=== PATIENT | male | born 1980 | race African-American/Black ===

== ENCOUNTER 2019-10-30 18:58 | Inpatient (IN) ==
[~2019-10-30 18:58] MED LIST: NS 1,000 ML IV ONE
[2019-10-30] MEDS ORDERED: HUMULIN R IV ONE (18:59)
--- NOTE | 2019-10-30 19:08 | PROVIDER DOCUMENTATION ---
HPI-General Adult - General Chief Complaint: High Blood Sugar Stated Complaint: high blood sugar Time Seen by Provider: 10/30/19 19:04 Source: patient Allergies/Adverse Reactions: Patient Allergies Allergy/AdvReac Type Severity Reaction Status Date / Time No Known Allergies Allergy Verified 10/30/19 21:52 Home Medications: Home Medication List Medication Instructions Recorded Confirmed Last Taken Type Insulin NPH Hum/Reg Insulin Hm 45 unit SQ QAM 01/22/18 10/30/19 04/02/18 History [Humulin 70/30 Kwikpen] Carvedilol [Coreg] 12.5 mg PO Q12HR #60 tab 01/27/18 10/30/19 04/02/18 Rx Insulin Humulin 70/30 [Humulin 20 unit SUBQ QPM insuln.pen 01/27/18 10/30/19 04/02/18 Rx 70/30] Insulin Lispro [Admelog] See Protocol SQ AC + HS #1 vial 01/27/18 10/30/19 04/02/18 Rx Lisinopril 40 mg PO DAILY #30 tab 01/27/18 10/30/19 04/02/18 Rx Simvastatin [Zocor] 20 mg PO QHS #30 tab 01/27/18 10/30/19 04/02/18 Rx Gabapentin 300 mg PO BID 09/30/19 10/30/19 Unknown History - History of Present Illness -Gen Adult Nature of Presenting Problems: 38 yr old M, hx of HTN, type 1 DM, presenting with a 4-5 day hx of vomiting, worsening fatigue, sleepiness and generalized body aches, nausea and vomiting; t he pt reports being out of his insulin for about 3 days and notes BG levels as high at 400s, pt has also been urinating more frequently. When pt was picked up by EMS this evening; he had a BP 80s/50s; it began to improve by the time he arrived to the ED; pt reports being on multiple BP meds; but chart only lists two. Review of Systems - Adult - REVIEW OF SYSTEMS - ADULT Constitutional: reports: see HPI Eyes: reports: no symptoms reported Ears, Nose, Mouth & Throat: reports: no symptoms reported Cardiovascular: reports: no symptoms reported Respiratory: reports: no symptoms reported Gastrointestinal: reports: see HPI Genitourinary: reports: see HPI Musculoskeletal: reports: no symptoms reported Integumentary: reports: no symptoms reported Neurological: reports: no symptoms reported Psychiatric: reports: no symptoms reported Endocrine: reports: see HPI Past History - Adult - PAST MEDICAL HISTORY-ADULT Review of Records: reports: Old Records Reviewed, Nursing Assessment Review Major Childhood Illnesses: reports: denies history Cardiovascular: reports: HTN, hyperlipidemia Respiratory: reports: denies history Gastrointestinal: reports: denies history. denies: GI bleed, ulcer Obstetrical/Gynecological: reports: denies history Genitourinary: reports: denies history Musculoskeletal: reports: denies history Neurological: reports: denies history, Seizures/Epilepsy Psychiatric: reports: denies history Endocrine/Immune: reports: Diabetes Other Conditions: reports: denies history - PRIOR SURGERIES/PROCEDURES Surgical/Procedure History: reports: none, other (ercp) - IMMUNIZATION STATUS Childhood Immunizations: See Nurse Assessment Flu Vaccine: See Nurse Assessment - FAMILY HISTORY Family History: CAD over 55 yo, other (DM- MOM) - SOCIAL HISTORY Living Situation: family Physical Exam-General - PHYSICAL EXAM-ADULT Initial Vital Signs Reviewed: Yes - CONSTITUTIONAL General Appearance: alert, thin, slow to respond - EYES Eyes: PERRL/EOMI - HEAD, EARS, NOSE, MOUTH & THROAT HENMT: normocephalic/atraumatic. negative: moist mucous membranes - RESPIRATORY Respiratory: lungs clear, normal breath sounds - CARDIOVASCULAR Cardiovascular: no edema - GASTROINTESTINAL (ABDOMEN) Abdominal Exam: normal bowel sounds, non tender, soft - MUSCULOSKELETAL Extremity: no pedal edema, no calf tenderness - SKIN Integumentary: warm/dry - PSYCHIATRIC Psych/Mental Status: normal mood/affect, oriented x 3 Progress - PLAN OF CARE/RESULTS Progress/Plan/Lab Results: Vital Signs - 8 hr 10/30/19 18:31 Temperature 98.1 F Pulse Rate 87 Respiratory Rate 16 Blood Pressure 85/57 O2 Sat by Pulse Oximetry 99 Laboratory Results - last 24 hr 10/30/19 18:39 POC Glucose 360 H Orders Category Date Time Status ACETONE SERUM [CHEM] Stat Lab 10/30/19 18:59 Uncollected CBC WITH ELECTRONIC DIFF [HEME] Stat Lab 10/30/19 18:58 Uncollected COMPREHENSIVE METABOLIC PANEL [CHEM] Stat Lab 10/30/19 18:58 Uncollected LACTATE, PLASMA [CHEM] Stat Lab 10/30/19 18:58 Uncollected URINALYSIS W/POSS RFLX CULT [URINALYSIS] Stat Lab 10/30/19 18:59 Uncollected Insulin Human Regular [Humulin R] Med 10/30/19 18:59 Once 5 unit IV NOW ONE Ns 1000 ml IV Bolus X1 Med 10/30/19 18:57 Ordered 0.9% Sodium Chloride Inj [Ns] 1,000 ml IV 999 mls/hr Result Diagrams: 10/30/19 18:45 10/30/19 18:45 - CONSULTS/PCP/HOSPITALIST Notification #1 *Consult/PCP/Hospitalist*: Dr. Colon Time Discussed: 19:35 Consult Disposition: Admit Departure - Departure Date of Disposition Decision: 10/30/19 Time of Disposition Decision: 20:31 DIAGNOSIS: DKA (diabetic ketoacidoses) Qualifiers: Diabetes mellitus type: type 1 Diabetes mellitus complication detail: without coma Qualified Code(s): E10.10 - Type 1 diabetes mellitus with ketoacidosis without coma Hypotension Qualifiers: Hypotension type: unspecified hypotension type Qualified Code(s): I95.9 - Hypotension, unspecified Disposition: ADMITTED INPATIENT 09 Certified Medical Emergency: Emergent Condition: Stable - Critical Care Note This patient required my direct & personal management of CC.: No Attestation - Physician/ BINH Attestation Patient care was provided by Advanced Practice Provider:: No The physician spent face to face time with patient:: Yes Advanced Practice Provider documentation review:: Supervising physician onsite and consulted in the evaluation and care of this patient. The physician did have a face to face encounter with the patient.
[2019-10-30 19:10] LABS: BASO# 0.04 X1000 (0.0-0.2); BASO% 0.3 % (0.0-0.8); EOS# 0.02 X1000 (0.0-0.7); EOS% 0.2 % (0.0-10.0); HEMATOCRIT 39.3 % (42.0-52.0); HEMOGLOBIN 13.1 g/dL (14.0-18.0); IMM GRAN# 0.02 X1000 (0.0-0.04); IMM GRAN% 0.2 % (0.0-0.5); LYMPH% 17.4 % (20.5-51.1); MCH 26.9 PG (27-31); MCHC 33.3 g/dL (33-37); MCV 80.7 FL (81-99); MONO# 0.57 X1000 (0.11-0.59); MPV 9.7 FL (7.4-10.4); NEUT# 8.83 X1000 (1.4-6.5); NEUT% 76.9 % (42.2-75.2); PLT 321 X1000 (130-400); RBC 4.87 XMIL (4.7-6.1); RDW 12.8 % (11.5-14.5); WBC 11.48 X1000 (4.8-10.8)
--- NOTE | 2019-10-30 19:33 | Diag Imaging Result Doc PS360 ---
EXAM: CHEST-PORTABLE 10/30/2019 HISTORY: Vomiting, Chest Discomfort TECHNIQUE: Erect AP portable at 1912 COMMENT: There is no evidence of acute cardiac or pulmonary disease. Compared to 01/22/2018 there has been no significant change. IMPRESSION: No acute disease. Electronically signed by Harley Min 10/30/2019 7:31 PM
[2019-10-30 19:38] LABS: AGAP 21; ALB/GLOB RATIO 1.1; ALBUMIN 3.3 g/dL (3.5-5.0); ALKALINE PHOSPHATASE 87 U/L (32-122); BUN 35 mg/dL (8-22); CALCIUM 8.7 mg/dL (8.8-10.2); CHLORIDE 93 mmol/L (98-107); COSMO 292; ESTIMATED GFR 45; GLUCOSE 384 mg/dL (70-104); GOT 20 U/L (10-34); GPT 35 U/L (10-44); POTASSIUM 4.5 mmol/L (3.5-5.1); SODIUM 134 mmol/L (136-145); TCO2 20 mmol/L (25-35); TOTAL BILIRUBIN 0.28 mg/dL (0.20-1.00); TOTAL PROTEIN 6.2 g/dL (6.3-8.3)
[2019-10-30 19:45] LABS: ACETONE SERUM SMALL (NEGATIVE)
[2019-10-30 19:50] LABS: URINE SOURCE CLEAN CATCH
[2019-10-30 19:54] LABS: BILIRUBIN URINE SMALL (NEGATIVE); BLOOD URINE NEGATIVE (NEGATIVE); COLOR YELLOW; GLUCOSE URINE >1000 mg/dL (NEGATIVE); KETONE URINE 40 mg/dL (NEGATIVE); LEUKOCYTES URINE SMALL (NEGATIVE); NITRITE URINE NEGATIVE (NEGATIVE); PH URINE 5.5; PROTEIN URINE 50 mg/dL (NEGATIVE); TURBIDITY URINE CLEAR (CLEAR); UR EPITHELIAL CELLS <10 /HPF (<10); URINE BACTERIA NEGATIVE /HPF; URINE RBC <10 /HPF (<10); URINE WBC 20-40 /HPF (<10); UROBILINOGEN URINE 3 mg/dL (NORMAL)
[2019-10-30] MEDS ORDERED: NS 1,000 ML IV ONE ×2 (20:29→21:44)
[2019-10-30 20:51] LABS: ALLEN TEST YES; BE 0.6 mmoll (-3.0-3.0); BLOOD TYPE ARTERIAL; HCO3-(ACT) 25.4 mmoll (20.0-26.0); METHB 0.7 % (0.0-1.5); O2HB 96.2 % (95.0-99.0); PCO2(98.6) 44 mmHg (35-45); PO2(98.6) 78 mmHg (60-100); SAMPLE BLOOD; SAO2 99.1 % (95.0-100.0); THB 12.5 g/dL (11.5-17.4); pH(98.6) 7.38 (7.35-7.45)
[2019-10-30 20:53] LABS: MODALITY ROOM AIR
[2019-10-30] MEDS ORDERED: ROCEPHIN 1 GM in NS 50 ML IV SCH (21:00)
[2019-10-30 21:33] LABS: INR 0.88
[2019-10-30 21:40] LABS: MAGNESIUM 2.4 mg/dL (1.5-2.7); PHOSPHORUS 4.1 mg/dL (2.7-4.5)
[2019-10-30 21:49] LABS: PTT < 20.0 Seconds (22.3-41.8)
[2019-10-30] MEDS ORDERED: TYLENOL PO PRN (22:09)
[2019-10-30] MEDS ORDERED: ZOFRAN IV PRN (22:09)
[2019-10-30] MEDS: HUMALOG SUBQ SCH (22:20)
[2019-10-30] MEDS: NS 1,000 ML IV SCH (22:23)
[2019-10-30] MEDS: LOVENOX SUBQ SCH (22:26)
[2019-10-30 22:51] LABS: HEMOGLOBIN A1C 10.1 % (4.8-6.0)
[2019-10-31 02:04] LABS: AGAP 15; BUN 28 mg/dL (8-22); CALCIUM 7.6 mg/dL (8.8-10.2); CHLORIDE 98 mmol/L (98-107); COSMO 284; CREATININE 1.4 mg/dL (0.7-1.2); ESTIMATED GFR > 60; GLUCOSE 210 mg/dL (70-104); SODIUM 136 mmol/L (136-145); TCO2 23 mmol/L (25-35)
[2019-10-31] MEDS: HUMALOG SUBQ SCH ×6 (02:23→21:44)
[2019-10-31 05:09] LABS: AGAP 14; BUN 25 mg/dL (8-22); CALCIUM 7.7 mg/dL (8.8-10.2); CHLORIDE 101 mmol/L (98-107); COSMO 287; CREATININE 1.3 mg/dL (0.7-1.2); ESTIMATED GFR > 60; GLUCOSE 190 mg/dL (70-104); POTASSIUM 3.8 mmol/L (3.5-5.1); SODIUM 139 mmol/L (136-145); TCO2 24 mmol/L (25-35)
[2019-10-31] MEDS ORDERED: NS 1,000 ML IV ONE (06:10)
--- NOTE | 2019-10-31 07:33 | HISTORY AND PHYSICAL ---
CHIEF COMPLAINT: High blood sugar. HISTORY OF PRESENT ILLNESS: This is a 38-year-old -[place] male Type 1 diabetic. He has been out of his insulin. He does not have a primary care provider because of insurance issues. He said he has had 4-5 days of vomiting with worsening fatigue and generalized body aches. Blood glucose has been in the 400s. He has been urinating more frequently. He was hypotensive on arrival. The patient was given fluid bolus. He had not become acidotic yet, but it looks like he was definitely headed towards DKA. I believe he will be able to be managed with sliding scale insulin after having several fluid boluses and then will continue normal saline. The patient was advised to get a primary care doctor; but, again, he stated that he has been getting the run- around related to his insurance issues. PAST MEDICAL HISTORY: Diabetes mellitus Type 1, DKA, hypertension, hyperlipidemia. PREVIOUS SURGICAL HISTORY: Colonoscopy. SOCIAL HISTORY: Half pack a day smoker. Smoking cessation gone over with the patient. He does not want to quit at this time. Occasional alcohol but not very frequently. No illicit drugs. FAMILY HISTORY: Positive for diabetes mellitus. ALLERGIES: No known drug allergies. HOME MEDICATIONS: No home medications. REVIEW OF SYSTEMS: A 14 point review of systems was conducted with the patient. Pertinent positives are listed above in the HPI. PHYSICAL EXAMINATION: VITAL SIGNS: Temperature 98.1, pulse 86, respirations 20, blood pressure 109/65, oxygen saturation 98% on room air. GENERAL: A pleasant 38-year-old male lying on the ER stretcher. He is alert and oriented x3 and in no acute distress. HEENT: Head is atraumatic and normocephalic. Pupils equal, round, reactive to light. Extraocular eye movements intact. Sclera are anicteric. Conjunctiva are pink. Oral mucosa is dry. NECK: Supple. No JVD. No thyromegaly. Trachea is midline. No cervical lymphadenopathy. CARDIAC: S1 and S2 appreciated. No murmurs, gallops or rubs. LUNGS: Clear to auscultation bilaterally. No rhonchi, wheezes or rales. Symmetrical rise and fall of respirations. ABDOMEN: Soft and nondistended. Diffusely tender to palpation. Bowel sounds present in all 4 quadrants and normoactive. No pulsatile mass. No organomegaly. EXTREMITIES: No clubbing, cyanosis or edema. 2+ pedal pulses bilaterally. GENITOURINARY: No bladder distention. Patient voids, otherwise deferred. NEUROLOGICAL: Alert and oriented x3. No focal motor deficits, otherwise nonfocal examination. LABORATORY DATA: WBC 11.48, hemoglobin 13.1, hematocrit 39.3, platelet count 321,000. ABG: pH 7.38, pCO2 44, pO2 78, bicarb 25.4. Sodium 134, potassium 4.5, chloride 93, carbon dioxide 20, BUN 35, creatinine 2, glucose 384, anion gap 21. He had 40 ketones and a small amount of acetone in urine, leuko-esterase positive 20-40, WBC and greater than 1000 glucose. ASSESSMENT: 1. Diabetes mellitus with hyperglycemia and possibly an early DKA. 2. Urinary tract infection. 3. Nausea and vomiting secondary to #1. 4. Poorly controlled diabetes mellitus. 5. Medical noncompliance. PLAN: Admit the patient to [facility]. Check hemoglobin A1C. Sliding scale insulin q 4 hours. Will give 3 liters bolus and start normal saline at 125 mL q hour. Rocephin 1 gram IV q 24 hours. Nicotine 14 mg patch daily. Recheck laboratory data. Further recommendations per the patient's clinical course. Dictated by PERLA Hubbard for Jagdish Colon MD cc: PERLA Hubbard MD
[2019-10-31] MEDS: NS 1,000 ML IV SCH ×2 (09:35→18:22)
[2019-10-31] MEDS: NICODERM PATCH TD SCH ×2 (09:40→18:23)
[2019-10-31 12:54] LABS: BASO# 0.03 X1000 (0.0-0.2); BASO% 0.3 % (0.0-0.8); EOS# 0.08 X1000 (0.0-0.7); EOS% 0.9 % (0.0-10.0); HEMOGLOBIN 11.1 g/dL (14.0-18.0); LYMPH# 2.83 X1000 (1.2-3.4); LYMPH% 32.1 % (20.5-51.1); MCH 26.7 PG (27-31); MCHC 32.6 g/dL (33-37); MCV 81.7 FL (81-99); MONO# 0.59 X1000 (0.11-0.59); MONO% 6.7 % (1.7-9.3); MPV 9.1 FL (7.4-10.4); NEUT# 5.29 X1000 (1.4-6.5); PLT 271 X1000 (130-400); RBC 4.16 XMIL (4.7-6.1); RDW 12.7 % (11.5-14.5); WBC 8.82 X1000 (4.8-10.8)
[2019-10-31 13:44] LABS: AGAP 12; BUN 16 mg/dL (8-22); CALCIUM 7.8 mg/dL (8.8-10.2); CHLORIDE 101 mmol/L (98-107); COSMO 277; CREATININE 1.1 mg/dL (0.7-1.2); ESTIMATED GFR > 60; GLUCOSE 204 mg/dL (70-104); POTASSIUM 3.7 mmol/L (3.5-5.1); SODIUM 135 mmol/L (136-145); TCO2 22 mmol/L (25-35)
--- NOTE | 2019-10-31 15:17 | PROGRESS NOTE ---
DATE: 10/31/2019 INTERVAL HISTORY: No acute events overnight. Mr. Jackson is feeling better. He is hungry and wanted to eat. He denies any more nausea or vomiting. His abdominal pain is better. He states that he takes NPH 70/30 insulin 45 in the morning time and 20 at nighttime but he ran out of it. VITALS: Currently, temperature 98.2 degrees, pulse 81, respiratory rate 18, blood pressure 142/86, saturating 100% on room air. PHYSICAL EXAMINATION: Not in acute distress. Oral cavity is moist. Air entry is bilaterally equal. No wheeze, rhonchi, or crackles. S1, S2 normal. No murmur, rub, or gallop. Abdomen is soft, nontender. No lower extremity edema. He is alert and oriented x3. LABS: Suggestive of hemoglobin of 11.1, platelets of 271,000. His leukocytosis has resolved. BMP suggestive of resolution of acute kidney injury. Normal anion gap. Blood glucose of 207. The blood cultures are in the lab. Urine culture did not have any growth. Influenza screen was negative. ASSESSMENT AND PLAN: 1. Uncontrolled diabetes mellitus with hyperglycemia, ketonuria, and possibly early diabetic ketoacidosis. He was not started on intravenous insulin drip and was managed with subcutaneous insulin regimen. I will resume his Humulin 70/30 and we will up titrate the dose as necessary. His anion gap is normal. I will start him on oral diet and also continue subcutaneous insulin every 4 hours. 2. Acute kidney injury and lactic acidosis on presentation because of profound volume depletion, now improving. Continue intravenous fluid resuscitation. 3. Tobacco use disorder. Continue nicotine patch. 4. Continue enoxaparin for deep venous thrombosis prophylaxis. The patient denies any urine burning. His polyuria has been getting better and his presentation polyuria could be related to diabetic ketoacidosis. DISPOSITION: I will monitor patient inside the hospital. Plan of care discussed with him. His questions have been answered. cc: Toño Atkins MD
[2019-10-31] MEDS ORDERED: INSULIN PEN NEEDLES ONE (18:41)
[2019-10-31] MEDS: HUMULIN 70/30 SUBQ SCH (18:46)
[2019-10-31] MEDS: LOVENOX SUBQ SCH (21:41)
[2019-11-01] MEDS: HUMALOG SUBQ SCH ×3 (02:24→10:21)
[2019-11-01] MEDS: NS 1,000 ML IV SCH (03:09)
[2019-11-01 06:42] LABS: AGAP 9; BUN 11 mg/dL (8-22); CALCIUM 7.5 mg/dL (8.8-10.2); CHLORIDE 103 mmol/L (98-107); COSMO 279; CREATININE 0.9 mg/dL (0.7-1.2); ESTIMATED GFR > 60; GLUCOSE 195 mg/dL (70-104); POTASSIUM 3.5 mmol/L (3.5-5.1); SODIUM 137 mmol/L (136-145); TCO2 25 mmol/L (25-35)
[2019-11-01] MEDS: HUMULIN 70/30 SUBQ SCH (07:43)
[2019-11-01] MEDS: NICODERM PATCH TD SCH ×2 (07:47→08:15)
[2019-11-01 07:57] VITALS: BP 135/82
--- NOTE | 2019-11-01 14:11 | DISCHARGE SUMMARY ---
ADMISSION DATE: 10/30/2019 DISCHARGE DATE: 11/01/2019 DISCHARGE DISPOSITION: Home. DISCHARGE CONDITION: Hemodynamically stable. His electrolytes are within acceptable range. Blood glucose is well controlled. DISCHARGE DIAGNOSES: 1. Uncontrolled type 1 diabetes mellitus with hyperglycemia and ketosis without actual acidosis. 2. Leukocytosis. 3. Anemia. 4. Electrolyte abnormalities including hypocalcemia. 5. Lactic acidosis because of diabetic ketoacidosis. 6. Acute kidney injury OTHER DIAGNOSES: 1. History of essential hypertension. 2. History of insulin-dependent diabetes mellitus type 1. 3. Hyperlipidemia. DISCHARGE MEDICATIONS: 1. Simvastatin 20 mg at nighttime. 2. Carvedilol 12.5 mg every 12 hours. 3. Insulin lispro sliding scale low-dose. 4. Insulin Humulin 70-30, 20 units subcutaneously b.i.d. 5. Lisinopril 40 mg daily. VITALS: At time of discharge temperature 98.3 degrees, pulse 71, respiratory rate 14, blood pressure 135/82, saturating 100% room air. PHYSICAL EXAMINATION: General: Mr. Jackson is not in acute distress. HEENT: Oral cavity is moist. Respiratory: Air entry bilaterally equal. No wheeze, no crackles. Cardiovascular: S1 normal. No murmur or gallop. Abdomen: Soft, nontender. Extremity: No lower extremity edema. Central Nervous System: He is alert and oriented x3. LABORATORY DATA: At time of discharge, WBC 8000, hemoglobin 11.1, platelet 271,000. Potassium 3.5, BUN 11, creatinine 0.9, bicarbonate 25, anion gap 9, blood glucose 177. Microbiology: Blood culture, urine culture, influenza screen were negative. IMAGING: Chest x-ray on presentation did not have any acute disease. HOSPITAL COURSE SUMMARY: Mr. Jackson is a 38-year-old man with past medical history of insulin-dependent diabetes mellitus type 1, who presented on 10/30/2019 with chief complaints of nausea, vomiting, abdominal pain, elevated glucose. He unfortunately did not have insurance and ran out of his insulin and was not taking his medicine for several weeks. In the emergency room, he was found to have temperature of 98.1 degrees, pulse of 87, respiratory rate of blood pressure of 85/57, and oxygen saturation of 99%. His initial labs had suggested carbon dioxide of 20, anion gap of 21, BUN of 35, and creatinine of 2. He also had lactate of 6.3. His blood glucose was 360. His ABG had suggested pH of 7.38. He was diagnosed with hyperglycemia due to uncontrolled diabetes mellitus, ketosis as his acetone was positive with elevated anion gap. He was started on subcutaneous insulin and was followed with serial electrolytes. Later on, his anion gap was better and he was transitioned to subcutaneous insulin regimen and his electrolytes and blood glucose remained normal. His acute kidney injury had resolved. The plan was to discharge him on NPH 70-30. Geospatial Scientist were consulted to offer him help with his insulin. Greater than 25 minutes were spent in the care of this patient. He was counseled about alcohol and smoking cessation. cc: Tooñ Atkins MD [id number]
== END 2019-11-01 10:32 | disposition home or self-care (01) | DRG 638 ==
LOC: ED 18:58 → SUATTDRO 22:08 → EDIPHOLD 22:08 → 2N 10-31 16:19
PROVIDERS: ATTEND Internal Medicine